=== PATIENT | female | born 1990 | race Caucasian/White ===

== ENCOUNTER 2024-04-19 20:26 | Emergency (ER) | payer SELFPAY ==
[2024-04-19 20:35] VITALS: BP 96/65; PULSE 118; RESP 14; TEMP 38; O2SAT 97; BMI 34.8
[2024-04-19 21:40] LABS: Basophils % 0.1 %; Hematocrit 42.5 % (36-47); Lymphocytes # 0.6 10^3/uL (0.8-4.8); Lymphocytes % 5.6 %; Mean Corpuscular HGB Conc 32.2 g/dL (30-55); Mean Corpuscular Volume 86.9 fl (85-98); Mean Platelet Volume 10.1 fL (7.4-10.4); Monocytes # 0.7 10^3/uL (0.2-0.9); Monocytes % 5.8 %; Neutrophils # 9.99 10^3/uL (1.8-7.7); Neutrophils % 88.2 %; Nucleated Red Blood Cells % 0 %; Platelet Count 213 10^3/cmm (157-399); Red Blood Count 4.89 10^6/uL (3.85-5.65); White Blood Count 11.33 10^3/uL (3.29-11.43)
[2024-04-19 21:55] LABS: Bacteria Urine Trace /hpf; Hyaline Casts Urine 0.81 /lpf; RBC Urine 0-2 /hpf (0-2)
[2024-04-19 21:56] LABS: HCG, Serum Qual Negative (Negative)
[2024-04-19 22:03] LABS: Alanine Aminotransferase 11 U/L (0-33); Albumin Level 4.6 g/dL (3.5-5.2); Alkaline Phosphatase 133 U/L (35-105); Aspartate Amino Transferase 15 U/L (0-32); Blood Urea Nitrogen 9 mg/dL (6-20); Calcium 9.1 mg/dL (8.5-10.5); Carbon Dioxide 23 mmol/L (22-29); Chloride 98 mmol/L (98-107); Creatinine Clr Calc Pharmacy 177.6116; Globulin 3.4 g/dL (1.3-4.6); Glucose 116 mg/dL (65-115); Osmolality Calculated 280 mOsm/kg (285-295); Sodium 135 mmol/L (136-145); Total Bilirubin 0.9 mg/dL (0.15-1.2)
[2024-04-19 22:12] LABS: Anion Gap 17.5 (5-19); Potassium 3.5 mmol/L (3.5-5.1)
[2024-04-19 22:17] LABS: Bilirubin Urine Negative (Negative); Blood Urine Negative (Negative); Glucose Urine UA Negative (Normal); Ketones Urine 1+ (Negative); Leukocyte Esterase Urine Trace (Negative); Nitrate Urine Negative (Negative); Protein Urine 1+ (Negative); Specific Gravity, Urine 1.027 (1.005-1.030); Urine Appearance Clear (CLEAR); Urine Color Dark Yellow (Yellow); pH Urine 5.5 (5-7)
[2024-04-19 22:23] LABS: Add Urine Culture? No
--- NOTE | 2024-04-19 23:07 | ED_ITS ---
HPI - Nausea/Vomiting/Diarrhea 2 General: Chief complaint: Nausea/Vomiting/Diarrhea Stated complaint: n/v/d after eating Time Seen by Provider: 04/19/24 22:38 Source: patient Mode of arrival: ambulatory Limitations: no limitations History of Present Illness: Patient is a 34-year-old female presenting to the emergency department complaining of nausea and vomiting since late last night. Patient states she thinks she had food poisoning, they ate around beef last night and she had symptom onset soon after. States that she was up vomiting until 11 AM this morning, this has slowed down but she has not vomited since 1600. She states she is concerned because she had similar symptoms as well in the past when she found out she was . She is not having any abdominal pain or nausea or vomiting at this time, but states she is dizzy when she stands up. No vaginal bleeding, no chest pain, no shortness of breath, no fevers, no other symptoms at this time. MD elicited complaint: nausea and vomiting Onset (ago): hour(s) Description of vomiting: food contents and bilious Associated nausea: Yes Associated abdominal pain: No Location of pain: None Pain consistency: now resolved Severity: moderate Context: possible food poisoning Associated symtoms: Reports dizziness and nausea; Denies chest pain, diaphoresis, dysuria, headache(s) or palpitations Related Data Allergies Allergy/AdvReac Type Severity Reaction Status Date / Time acetaminophen Allergy Severe ALGY-Anaphy Verified 04/19/24 20:43 laxis aloe vera Allergy Severe ALGY-Anaphy Verified 04/19/24 20:43 laxis amoxicillin Allergy Severe ALGY-Anaphy Verified 04/19/24 20:43 laxis codeine Allergy Severe ALGY-Swell Verified 04/19/24 20:43 Lip/Tongue/Throat Latex, Natural Rubber Allergy Severe ALGY-Rash Verified 04/19/24 20:43 Penicillins Allergy Severe ALGY-Anaphy Verified 04/19/24 20:43 laxis Sulfa (Sulfonamide Allergy Severe ALGY-Rash Verified 04/19/24 20:43 Antibiotics) Review of Systems 2 General: Reports: 10 or more systems reviewed and unremarkable except in HPI and below Const: Denies: fever(s), chills, change in appetite, change in weight or diaphoresis ENMT: Denies: throat pain or hoarseness Card: Denies: chest pain, palpitations or lightheadedness Resp: Denies: dyspnea, productive cough or wheezing GI: Reports: nausea and vomiting; Denies: abdominal pain or diarrhea : Denies: flank pain, difficulty voiding, dysuria, urinary frequency or urinary urgency Musc: Denies: neck pain or back pain Skin/Breast: Denies: rash or new lesions Neuro: Reports: dizziness; Denies: headache(s) [facility] ED 2 Female Reproductive History: Date of last menstrual period: 02/18/24 Physical Exam 2 Const: COMMON NORMALS: no acute distress, patient oriented x3, no limitations, healthy appearing, alert and well nourished GENERAL APPEARANCE: cooperative and comfortable ORIENTATION/CONSCIOUSNESS: Yes awake HENMT: COMMON NORMALS: normocephalic, atraumatic and moist oral mucous membranes HEAD & SCALP: normocephalic and atraumatic Eye: COMMON NORMALS: Equal, round and reactive pupils present, EOMs intact bilaterally and conjunctivae normal CONJUNCTIVA: Yes conjunctivae normal P UPIL: Yes Equal, round and reactive pupils present Neck/C-Spine: COMMON NORMALS: full ROM, supple, no meningeal signs and no JVD Resp: COMMON NORMALS: normal respiratory effort, No retractions, No use of accessory muscles and clear to auscultation bilaterally AUSCULTATION: clear to auscultation bilaterally, no crackles, no rales, no rhonchi and no wheezes Cardio: COMMON NORMALS: no JVD, regular rhythm, S1 normal heart sound present, S2 normal heart sound present, No gallops present (Cardio), No clicks present (Cardio), No murmurs present (Cardio), No rub (Cardio) and Peripheral pulses 2+ throughout RATE: tachycardic RHYTHM: regular rhythm HEART SOUNDS: S1 normal heart sound present and S2 normal heart sound present PERIPHERAL PULSES: Peripheral pulses 2+ throughout GI: COMMON NORMALS: Normal to inspection, nondistended, normoactive bowel sounds present, Soft to palpation, non-tender, No hepatosplenomegaly present and no masses AUSCULTATION: Yes normoactive bowel sounds PALPATION: Yes Soft to palpation, No Guarding due to palpation present (GI), No Rigid due to palpation and Yes No hepatosplenomegaly present RECTAL EXAM: deferred : COMMON NORMALS: Yes no CVA tenderness BLADDER/KIDNEY EXAM: Yes no CVA tenderness Back/Pelvis: COMMON NORMALS: no CVA tenderness Extremity: COMMON NORMALS: normal to inspection and full ROM Neuro: COMMON NORMALS: patient oriented x3, moves all extremities, no focal motor deficits and no sensory deficits noted SENSORIUM/ORIENTATION: Yes alert MENINGEAL SIGNS: Yes no meningeal signs Psych: COMMON NORMALS: mental status grossly normal, cooperative and speech normal SPEECH: Yes normal speech Skin: COMMON NORMALS: no rashes or lesions noted GENERAL SKIN EXAM: no rashes or lesions noted Course 2 Vital Signs: Vital signs: Vital Signs Temperature 100.4 F H 04/19/24 20:35 Pulse Rate 118 H 04/19/24 20:35 Respiratory Rate 14 04/19/24 20:35 Blood Pressure 96/65 04/19/24 20:35 Pulse Oximetry 97 04/19/24 20:35 Oxygen Delivery Me thod Room Air 04/19/24 20:35 MDM - Nausea/Vomiting/Diarrhea Medical Decision Making Patient believes that she had food poisoning, had been vomiting severely after consuming ground beef last night. Was asymptomatic at time of exam other than stating she got dizzy when she stood up. Tachycardic on exam, blood pressure normal but on the lower side, mild temperature. I do feel that she is dehydrated after vomiting, and would benefit from IV rehydration and then rechecking her afterwards. She denies wanting an IV, states she would rather hydrate at home. Is given p.o. Zofran here as well as p.o. ibuprofen, informed to return with any new or worsening. She agrees with this plan. Lab Data 04/19/24 21:23 04/19/24 21:23 Laboratory Results WBC 11.33 10^3/uL (3.29-11.43) 04/19/24 21:23 RBC 4.89 10^6/uL (3.85-5.65) 04/19/24 21:23 Hgb 13.70 g/dL (11.27-16.99) 04/19/24 21:23 Hct 42.5 % (36-47) 04/19/24 21:23 MCV 86.9 fl (85-98) 04/19/24 21: MCH 28.0 pg (27-33) 04/19/24 21: MCHC 32.2 g/dL (30-55) 04/19/24 21: RDW 13.0 % (12.1-15.1) 04/19/24 21: Plt Count 213 10^3/cmm (157-399) 04/19/24 21: MPV 10.1 fL (7.4-10.4) 04/19/24 21: Neut % (Auto) 88.2 % 04/19/24: Lymph % (Auto) 5.6 % 04/19/24: [place] % (Auto) 5.8 % 04/19/24 21: Eos % (Auto) 0.0 % 04/19/24 21: Baso % (Auto) 0.1 % 04/19/24: Neut # (Auto) 9.99 10^3/uL (1.8-7.7) H 04/19/24: Lymph # (Auto) 0.6 10^3/uL (0.8-4.8) L 04/19/24: [place] # (Auto) 0.7 10^3/uL (0.2-0.9) 04/19/24 21: Eos # (Auto) 0.0 10^3/uL (0.0-0.8) 04/19/24: Baso # (Auto) 0.0 10^3/uL (0.0-0.1) 04/19/24: Nucleated RBC % (auto) 0 % 04/19/24: Nucleated RBCs # 0.0 /100WBC 04/19/24 21: Sodium 135 mmol/L (136-145) L 04/19/24 21:23 Potassium 3.5 mmol/L (3.5-5.1) 04/19/24 21: Chloride 98 mmol/L (98-107) 04/19/24 21: Carbon Dioxide 23 mmol/L (22-29) 04/19/24 21: Anion Gap 17.5 (5-19) 04/19/24 21: BUN 9 mg/dL (6-20) 04/19/24 21: Creatinine 0.5 mg/dL (0.5-0.9) 04/19/24 21: GFR Calculation 143.0 mL/min (90-130) H 04/19/24 21: Glucose 116 mg/dL (65-115) H 04/19/24 21: Calculated Osmolality 280 mOsm/kg (285-295) L 04/19/24 21: Calcium 9.1 mg/dL (8.5-10.5) 04/19/24 21: Total Bilirubin 0.9 mg/dL (0.15-1.2) 04/19/24 21: AST 15 U/L (0-32) 04/19/24 21: ALT 11 U/L (0-33) 04/19/24 21: Alkaline Phosphatase 133 U/L (35-105) H 04/19/24 21: Total Protein 8.0 g/dL (6.6-8.7) 04/19/24 21: Albumin 4.6 g/dL (3.5-5.2) 04/19/24 21: Globulin 3.4 g/dL (1.3-4.6) 04/19/24 21: HCG, Qual Negative (Negative) 04/19/24 21: Urine Color Dark yellow (Yellow) A 04/19/24 21:21 Urine Appearance Clear (CLEAR) 04/19/24 21: Urine pH 5.5 (5-7) 04/19/24 21: Ur Specific [place] 1.027 (1.005-1.030) 04/19/24 21: Urine Protein 1+ (Negative) A 04/19/24 21: Urine Glucose (UA) Negative (Normal) 04/19/24 21: Urine Ketones 1+ (Negative) H 04/19/24 21:21 Urine Blood Negative (Negative) 04/19/24 21: Urine Nitrate Negative (Negative) 04/19/24 21: Urine Bilirubin Negative (Negative) 04/19/24 21: Urine Urobilinogen 1.0 mg/dL (Negative) 04/19/24 21: Ur Leukocyte Esterase Trace (Negative) A 04/19/24 21:21 Urine RBC 0-2 /hpf (0-2) 04/19/24 21:21 Urine WBC 6-10 /hpf (0-5) 04/19/24 21:21 Ur Squamous Epith Cells 11-20 /hpf (0-5) H 04/19/24 21:21 Amorphous Sediment Not Reportable 04/19/24 21:21 Urine Bacteria Trace /hpf (NONE) 04/19/24 21:21 Hyaline Casts 0.81 /lpf 04/19/24 21:21 No radiology studies performed this visit Discharge Plan Discharge Patient Disposition: Home Clinical Impression: Dehydration, Food poisoning Condition: Stable Discharge Orders: Discharge ED (Routine); Ordered 04/19/24 Ordered By: Lenny Giron Patient Instructions: Dehydration (ED), Food Poisoning (ED) Activity Restrictions/Additional Instructions: Make sure to hydrate adequately as discussed. Please return with any new or worsening. Follow-up with primary care. Coding Level of Care Code ED Preventative Maintenance Technician for [employer]
--- NOTE | 2024-04-19 23:27 | PC.NURSE ---
Pt. refused I.V. and asked for P.O. medication for nausea. I have spoke with the provider and they have agreed to that request.
[2024-04-19 23:31] VITALS: BP 122/73; PULSE 108; O2SAT 98
== END 2024-04-19 23:36 | disposition home or self-care (01) ==
PROVIDERS: Emergency Medicine; Emergency Provider Physician Assistant
DX: E86.0 Dehydration (principal); A05.9 Bacterial foodborne intoxication, unspecified
CPT/HCPCS: 36415; 80053; 81001; 84703; 85025; 99283